=== PATIENT | female | born 1990 | race Native Hawaiian/Other Pacific Islander ===

== ENCOUNTER 2016-10-15 14:05 | Emergency (ER) | payer OTHER ==
[~2016-10-15] VITALS: Ht 165.1 cm; Wt 63.5 kg
[2016-10-15 14:56] LABS: POTASSIUM 3.4 mmol/L (3.6-5.2); SODIUM 135 mmol/L (136-145)
[2016-10-15 15:17] LABS: PLATELET COUNT 204 K/uL (152-353)
[2016-10-15 16:30] VITALS: BP 118/69; TEMP 98.1
== END 2016-10-15 14:44 | disposition home or self-care (01) ==
LOC: ED 14:05
PROVIDERS: Specialist
DX: E86.0 Dehydration (principal); F19.10 Other psychoactive substance abuse, uncomplicated; O99.322 Drug use complicating pregnancy, second trimester; Z3A.17 17 weeks gestation of pregnancy
CPT/HCPCS: 36415; 80053; 80307; 81000; 81025; 84702; 85027; 96361; 96365; 96374; 96376; 99284; G0479; J2550; J7060

== ENCOUNTER 2016-10-18 13:54 | Emergency (ER) | payer OTHER ==
[~2016-10-18] VITALS: Ht 165.1 cm; Wt 63.5 kg
[2016-10-18 15:30] LABS: POTASSIUM 3.3 mmol/L (3.6-5.2); SODIUM 135 mmol/L (136-145)
[2016-10-18 15:38] LABS: PLATELET COUNT 223 K/uL (152-353)
[2016-10-18 17:30] VITALS: BP 118/60; TEMP 98.5
== END 2016-10-18 17:48 | disposition home or self-care (01) ==
LOC: ED 13:54
DX: N75.0 Cyst of Bartholin's gland (principal); N75.1 Abscess of Bartholin's gland; R21 Rash and other nonspecific skin eruption; Z33.1 Pregnant state, incidental
CPT/HCPCS: 80053; 80307; 81000; 84702; 85027; 87070; 87077; 87185; 87186; 87205; 96360; 96372; 96375; 99284; G0479; J0696; J1885; J2405

== ENCOUNTER 2017-08-05 18:43 | Emergency (ER) | payer OTHER ==
[~2017-08-05] VITALS: Ht 160 cm; Wt 83.9 kg
[2017-08-05 19:18] LABS: PLATELET COUNT 136 K/uL (152-353)
[2017-08-05 21:27] VITALS: BP 133/79; TEMP 98.2
== END 2017-08-05 21:40 | disposition home or self-care (01) ==
LOC: ED 18:43
DX: L03.211 Cellulitis of face (principal); L73.8 Other specified follicular disorders
CPT/HCPCS: 36415; 85027; 96372; 99283; J0696; J1885

== ENCOUNTER 2018-09-26 23:33 | Emergency (ER) | payer OTHER ==
[~2018-09-26] VITALS: Ht 172.7 cm; Wt 72.6 kg
[2018-09-26 23:35] VITALS: BP 120/68; TEMP 99.1
== END 2018-09-27 00:05 | disposition home or self-care (01) ==
LOC: ED 23:33
DX: M54.5 Low back pain (principal); X50.0XXA Overexertion from strenuous movement or load, initial encounter; Y92.89 Other specified places as the place of occurrence of the external cause
CPT/HCPCS: 99281; J1885

== ENCOUNTER 2018-09-29 04:55 | Emergency (ER) | payer OTHER ==
[~2018-09-29] VITALS: Ht 172.7 cm; Wt 72.6 kg
[2018-09-29 06:54] VITALS: BP 98/58; TEMP 98.9
== END 2018-09-29 06:58 | disposition home or self-care (01) ==
LOC: ED 04:55
DX: M54.5 Low back pain (principal); M43.06 Spondylolysis, lumbar region; X50.0XXA Overexertion from strenuous movement or load, initial encounter; Y92.89 Other specified places as the place of occurrence of the external cause
CPT/HCPCS: 81025; 96372; 99283; J1885

== ENCOUNTER 2018-10-15 14:57 | Inpatient (IN) | payer OTHER ==
[~2018-10-15] VITALS: Ht 165.1 cm; Wt 70.1 kg
[2018-10-15 16:14] VITALS: BP 112/71; TEMP 99.1; Ht 165.1 cm; Wt 70.1 kg
[2018-10-15 16:26] LABS: PLATELET COUNT 184 K/uL (152-353)
[2018-10-15 16:40] LABS: POTASSIUM 4.5 mmol/L (3.6-5.2)
[2018-10-15 20:00] VITALS: BP 110/64; TEMP 99.2
[2018-10-16] VITALS: BP 103/60; TEMP 99.2
[2018-10-16 03:48] VITALS: BP 111/62; TEMP 98.9
[2018-10-16 12:00] VITALS: BP 114/64; TEMP 98
[2018-10-16 16:00] VITALS: BP 124/75; TEMP 98.7
[2018-10-16 20:03] VITALS: BP 125/73; TEMP 98.8
[2018-10-17] VITALS: BP 119/71; TEMP 99.1
[2018-10-17 04:00] VITALS: BP 143/91; TEMP 98
[2018-10-17 07:03] LABS: PLATELET COUNT 158 K/uL (152-353)
[2018-10-17 07:46] LABS: POTASSIUM 5.2 mmol/L (3.6-5.2)
[2018-10-17 08:00] VITALS: BP 111/76; TEMP 98.5
[2018-10-17 12:00] VITALS: BP 112/76; TEMP 98.6
[2018-10-17 16:00] VITALS: BP 121/76; TEMP 98.9
[2018-10-17 20:20] VITALS: BP 142/82; TEMP 98.6
[2018-10-18] VITALS: BP 160/99; TEMP 98.6
[2018-10-18 04:20] VITALS: BP 144/90; TEMP 98.7
[2018-10-18 08:00] VITALS: BP 163/94; TEMP 98.6
[2018-10-18 12:00] VITALS: BP 163/104; TEMP 97.8
[2018-10-18 16:05] VITALS: BP 170/94; TEMP 97.6
[2018-10-18 20:00] VITALS: BP 166/94; TEMP 97.5
[2018-10-19] VITALS (8 sets, daily range): BP systolic 122–166; BP diastolic 80–101; TEMP 97.6–98.6
[2018-10-20 03:52] VITALS: BP 136/87; TEMP 98.3
[2018-10-20 08:00] VITALS: BP 137/97; TEMP 98.3
[2018-10-20 12:00] VITALS: BP 130/73; TEMP 98.2
[2018-10-20 16:00] VITALS: BP 150/102; TEMP 98.1
[2018-10-20 20:00] VITALS: BP 125/86; TEMP 98.3
[2018-10-21] VITALS: BP 147/84; TEMP 98.5
[2018-10-21 04:00] VITALS: BP 154/98; TEMP 98.3
[2018-10-21 06:01] LABS: PLATELET COUNT 239 K/uL (152-353)
[2018-10-21 06:31] LABS: POTASSIUM 3.7 mmol/L (3.6-5.2)
[2018-10-21 08:00] VITALS: BP 131/97; TEMP 98.1
[2018-10-21 12:00] VITALS: BP 140/93; TEMP 98.9
[2018-10-21 16:00] VITALS: BP 156/95; TEMP 99.1
[2018-10-21 20:00] VITALS: BP 153/102; TEMP 99.2
[2018-10-22] VITALS: BP 148/101; TEMP 98.4
[2018-10-22 04:00] VITALS: BP 144/81; TEMP 98.8
[2018-10-22 08:00] VITALS: BP 152/99; TEMP 98.2
== END 2018-10-22 14:20 | disposition home or self-care (01) | DRG 176 ==
LOC: MED/SURG 14:57
PROVIDERS: ADMIT Internal Medicine
PROC: 30233N1 Transfusion of Nonautologous Red Blood Cells into Peripheral Vein, Percutaneous Approach (ICD-10-PCS; 2018-10-17)
PROC: 30233N1 Transfusion of Nonautologous Red Blood Cells into Peripheral Vein, Percutaneous Approach (ICD-10-PCS; principal; 2018-10-18)
PROC: 02HV33Z Insertion of Infusion Device into Superior Vena Cava, Percutaneous Approach (ICD-10-PCS; 2018-10-20)
DX: I26.90 Septic pulmonary embolism without acute cor pulmonale (principal); R21 Rash and other nonspecific skin eruption; B95.61 Methicillin susceptible Staphylococcus aureus infection as the cause of diseases classified elsewhere; D64.89 Other specified anemias
CPT/HCPCS: 36415; 80053; 80202; 80307; 81000; 83605; 85014; 85018; 85027; 86609; 86850; 86900; 86901; 86922; 87040; 87077; 87185; 87186; 87205; 93306; C1751; J0696; J1885; J1940; J2270; J2405; J2930; J3370; J3490; P9016

== ENCOUNTER 2018-10-22 19:55 | Outpatient (CLI) | payer OTHER | END 2018-10-22 22:43 | disposition home or self-care (01) | LOC: INF 19:55 | DX: A41.01 Sepsis due to Methicillin susceptible Staphylococcus aureus (principal) | CPT/HCPCS: 96365; 96366; 96375; J1642; J3370 ==

== ENCOUNTER 2018-10-23 09:21 | Outpatient (CLI) | payer OTHER ==
[~2018-10-23] VITALS: Ht 165.1 cm; Wt 68.5 kg
== END 2018-10-23 19:35 | disposition home or self-care (01) ==
LOC: INF 09:21
DX: A41.01 Sepsis due to Methicillin susceptible Staphylococcus aureus (principal)
CPT/HCPCS: 96365; 96366; J3370

== ENCOUNTER 2018-10-24 21:05 | Outpatient (CLI) | payer OTHER | END 2018-10-24 21:42 | disposition home or self-care (01) | LOC: INF 21:05 | DX: A41.01 Sepsis due to Methicillin susceptible Staphylococcus aureus (principal) | CPT/HCPCS: 96365; 96366 ==

== ENCOUNTER 2018-10-28 09:18 | Outpatient (CLI) | payer OTHER ==
[~2018-10-28] VITALS: Ht 165.1 cm; Wt 68.0 kg
[2018-10-28 09:38] VITALS: BP 128/83; TEMP 97.7
== END 2018-10-29 00:50 | disposition home or self-care (01) ==
LOC: INF 09:18
DX: B95.61 Methicillin susceptible Staphylococcus aureus infection as the cause of diseases classified elsewhere (principal); I26.90 Septic pulmonary embolism without acute cor pulmonale; R21 Rash and other nonspecific skin eruption
CPT/HCPCS: 96365; 96366; 96375; J3370

== ENCOUNTER 2018-10-29 12:20 | Outpatient (CLI) | payer OTHER ==
[~2018-10-29] VITALS: Ht 165.1 cm; Wt 68.0 kg
[2018-10-29 12:28] VITALS: BP 145/98; TEMP 98
[2018-10-29 14:46] VITALS: BP 122/77; TEMP 98.5
== END 2018-10-29 15:00 | disposition home or self-care (01) ==
LOC: RAD 12:20 → INF 12:20
DX: I26.90 Septic pulmonary embolism without acute cor pulmonale (principal); B95.61 Methicillin susceptible Staphylococcus aureus infection as the cause of diseases classified elsewhere
CPT/HCPCS: 36589; 87070; 96365; 96366; J3370

== ENCOUNTER 2018-11-11 14:27 | Outpatient (CLI) | payer OTHER | END 2018-11-11 20:35 | disposition home or self-care (01) | LOC: MRI 14:27 | DX: M54.5 Low back pain (principal); M54.10 Radiculopathy, site unspecified ==

== ENCOUNTER 2022-08-02 00:04 | Emergency (ER) | payer OTHER ==
[~2022-08-02] VITALS: Ht 165.1 cm; Wt 90.7 kg
[2022-08-02 00:10] VITALS: BP 137/86; TEMP 98.7
== END 2022-08-02 01:15 | disposition home or self-care (01) ==
LOC: ED 00:04
DX: A08.39 Other viral enteritis (principal)
CPT/HCPCS: 81002; 81025; 99283